=== PATIENT | female | born 1970 | race Caucasian/White ===

== ENCOUNTER 2021-06-05 13:05 | Emergency (ER) | payer BC ==
[~2021-06-05] VITALS: Ht 175.3 cm; Wt 106.8 kg
[2021-06-05 14:07] VITALS: BP 159/87
== END 2021-06-05 19:49 | disposition left against medical advice (07) ==
LOC: ER 13:05
DX: R10.9 Unspecified abdominal pain (principal); Z53.21 Procedure and treatment not carried out due to patient leaving prior to being seen by health care provider